=== PATIENT | male | born 1940 | race Caucasian/White ===

== ENCOUNTER → 2016-07-25 | Outpatient (CLI) | payer MEDICARE | LOC: KOH-I 16:23 | DX: M25.571 Pain in right ankle and joints of right foot (principal) | CPT/HCPCS: 73630 ==

== ENCOUNTER 2020-03-13 17:34 | Emergency (ER) | payer MEDICARE ==
[~2020-03-13 17:34] MED LIST: ABREVA2 GM TP; AREDS EYE VITAMIN PO; ASPIRIN EC81 MG PO; AUGMENTIN 250-250 MG PO; AUGMENTIN 500-1 EACH PO; CLEOCIN HCL300 MG PO; CLOPIDOGREL75 MG PO; D3-200050 MCG PO; DOXYCYCLINE HY100 MG PO; FERROCITE324 MG PO; FISH OIL 1,0001 EAC4 PO; FLOMAX0.4 MG PO; FLUTICASONE-SA1 EAC4 INH; FOLIC ACID 1 MG1 MG PO; GABAPENTIN300 MG PO; HUMALOG 10100 UNITS/ SC; HYDROXYZINE PO; KEFLEX CAP 500500 MG PO; LIPITOR40 MG PO; LOPRESSOR 25 MG25 MG PO; MECLIZINE HCL25 M1 PO; MELATONIN3 M3 PO; MIDODRINE HCL10 MG PO; NEPHRO-VITE RX1 EACH PO; NORCO 5-325 TA1 EACH PO; PERCOCET 5/325 T1 EA PO; PLAVIX 75 MG TA75 MG PO; RENVELA800 MG PO; ROCALTROL CA0.25 MCG PO; SILVADENE CREAM20 GM TOP; SODIUM BICARBO650 MG PO; TYLENOL325 MG PO; ULTRAM50 MG PO; VENTOLIN HFA 66.7 GM INH; VITAMIN B-121000 MCG PO; VITAMIN D250000 UNIT PO; VITAMIN D31000 UNIT PO; VITAMIN D31250 MCG PO; [UNRECOGNIZED DRUG - OTHER] PO
[2020-03-31] MEDS ORDERED: LIPO-FLAVONOID1 EACH PO (12:54)
[2020-03-31] MEDS ORDERED: VITAMIN D21250 MCG PO (12:58)
[2020-03-31] MEDS ORDERED: MIDODRINE HCL5 MG PO (12:59)
[2020-03-31] MEDS ORDERED: VENTOLIN HFA 66.7 GM INH (13:01)
[2020-03-31] MEDS ORDERED: TRIPHROCAPS SOFT1 MG PO (13:01)
[2020-03-31] MEDS ORDERED: VITAMIN D350 MC3 PO (13:02)
[2020-03-31] MEDS ORDERED: HYDROXYZINE HCL10 MG PO (13:03)
[2020-03-31] MEDS ORDERED: AMMONIUM LAC CREAM TOP (13:03)
[2020-06-25] MEDS ORDERED: IRON325 M1 PO (09:16)
[2020-06-25] MEDS ORDERED: MECLIZINE HCL25 MG PO (09:16)
[2020-06-25] MEDS ORDERED: CLINDAMYCIN HC300 MG PO (15:05)
[2020-09-03] MEDS ORDERED: MIDODRINE HCL5 MG PO (09:14)
== END 2020-03-13 19:20 | disposition home or self-care (01) ==
LOC: ER1 17:34
DX: L76.22 Postprocedural hemorrhage of skin and subcutaneous tissue following other procedure (principal); E11.22 Type 2 diabetes mellitus with diabetic chronic kidney disease; N18.6 End stage renal disease; E11.40 Type 2 diabetes mellitus with diabetic neuropathy, unspecified; Z99.2 Dependence on renal dialysis; Z85.46 Personal history of malignant neoplasm of prostate; Z86.73 Personal history of transient ischemic attack (TIA), and cerebral infarction without residual deficits; Z79.02 Long term (current) use of antithrombotics/antiplatelets; Z79.899 Other long term (current) drug therapy
CPT/HCPCS: 99283

== ENCOUNTER → 2020-03-31 | Outpatient (CLI) | payer MEDICARE ==
[~2020-03-31] MED LIST changes: +AMMONIUM LAC CREAM TOP; +CALCIUM ACETAT667 M2 PO; +CIPRO250 MG PO; +CLINDAMYCIN HC300 MG PO; +FLOMAX 0.4 MG0.4 MG PO; +GENTAMICIN SULF30 GM TP; +HYDROXYZINE HCL10 MG PO; +IRON325 M1 PO; +LIPO-FLAVONOID1 EACH PO; +MECLIZINE HCL25 MG PO; +MIDODRINE HCL2.5 MG PO; +MIDODRINE HCL5 MG PO; +PLAVIX75 MG PO; +PREDNISONE 10 M10 MG PO; +SODIUM BICARBO650 M1 PO; +TRAMADOL HCL50 MG PO; +TRIPHROCAPS SOFT1 MG PO; +VANCOMYCIN IV750 MG IV; +VIBRAMYCIN100 MG PO; +VITAMIN D21250 MCG PO; +VITAMIN D350 MC3 PO
[2020-03-31 12:53] LABS: HEMOGLOBIN 10.3 gm/dl (14.0-17.5); RED BLOOD COUNT 3.35 M/UL (4.20-5.50); WHITE BLOOD COUNT 7.8 K/UL (4.5-11.0)
== END ==
LOC: OPSV2 09:00
PROVIDERS: Surgery
DX: Z01.818 Encounter for other preprocedural examination (principal); R94.39 Abnormal result of other cardiovascular function study; E11.9 Type 2 diabetes mellitus without complications
CPT/HCPCS: 36415; 71046; 80053; 85025; 85610; 85730; 86850; 86900; 86901; 93005

== ENCOUNTER 2020-04-15 19:27 | Inpatient (IN) | payer MEDICARE ==
[~2020-04-15] VITALS: Ht 182.9 cm; Wt 81.6 kg
[~2020-04-15 19:27] MED LIST changes: -CALCIUM ACETAT667 M2 PO; -CIPRO250 MG PO; -CLINDAMYCIN HC300 MG PO; -FLOMAX 0.4 MG0.4 MG PO; -GENTAMICIN SULF30 GM TP; -IRON325 M1 PO; -MECLIZINE HCL25 MG PO; -MIDODRINE HCL2.5 MG PO; -PLAVIX75 MG PO; -PREDNISONE 10 M10 MG PO; -SODIUM BICARBO650 M1 PO; -TRAMADOL HCL50 MG PO; -VANCOMYCIN IV750 MG IV; -VIBRAMYCIN100 MG PO
[2020-04-15 20:15] LABS: HEMOGLOBIN 9.1 gm/dl (14.0-17.5); RED BLOOD COUNT 2.98 M/UL (4.20-5.50); WHITE BLOOD COUNT 8.4 K/UL (4.5-11.0)
[2020-04-16 05:59] LABS: HEMOGLOBIN 8.3 gm/dl (14.0-17.5); RED BLOOD COUNT 2.77 M/UL (4.20-5.50)
[2020-04-16 14:41] LABS: ACINETOBACTER BAUMANNII Not Detected (Negative); CANDIDA ALBICANS Not Detected (Negative); CANDIDA KRUSEI Not Detected (Negative); CANDIDA TROPICALIS Not Detected (Negative); ENTEROCOCCUS Not Detected (Negative); ESCHERICHIA COLI Not Detected (Negative); HAEMOPHILUS INFLUENZAE Not Detected (Negative); KLEBSIELLA OXYTOCA Not Detected (Negative); KLEBSIELLA PNEUMONIAE Not Detected (Negative); KPC-CARBAPENEM-RESISTANCE GENE Not Detected (Negative); PROTEUS Not Detected (Negative); PSEUDOMONAS AERUGINOSA Not Detected (Negative); SERRATIA MARCESANS Not Detected (Negative); STREP AGALACTIAE (GROUP B) Not Detected (Negative); STREP PYOGENES (GROUP A) Not Detected (Negative); STREPTOCOCCUS Not Detected (Negative); vanA/B (VANCOMYCIN RESIST GENE Not Detected (Negative)
[2020-04-16 16:16] LABS: mecA (METHICILLIN RESIST GENE DETECTED (Negative)
[2020-04-16 16:17] LABS: STAPHYLOCOCCUS DETECTED (Negative); STAPHYLOCOCCUS AUREUS DETECTED (Negative)
[2020-04-17 05:31] LABS: HEMOGLOBIN 8.4 gm/dl (14.0-17.5); RED BLOOD COUNT 2.75 M/UL (4.20-5.50)
[2020-04-17 05:32] LABS: WHITE BLOOD COUNT 4.7 K/UL (4.5-11.0)
[2020-04-18 09:57] LABS: HEMOGLOBIN 7.9 gm/dl (14.0-17.5); RED BLOOD COUNT 2.61 M/UL (4.20-5.50); WHITE BLOOD COUNT 3.7 K/UL (4.5-11.0)
[2020-04-19 05:25] LABS: HEMOGLOBIN 8.6 gm/dl (14.0-17.5); RED BLOOD COUNT 2.85 M/UL (4.20-5.50); WHITE BLOOD COUNT 4.2 K/UL (4.5-11.0)
[2020-04-20 12:14] LABS: HBSAG SCREEN Negative (Negative); HEP A AB, IGM Negative (Negative); HEP B CORE AB, IGM Negative (Negative); HEP C VIRUS AB <0.1 (0.0-0.9)
--- NOTE | 2020-04-20 15:09 | NUR ---
LAB CALLED WITH POTASSIUM LEVEL AT 3.0. CALLED MD, NO ANSWER. PATIENT HAS PRN POTASSIUM ORDERED. GIVEN AT 1510.
--- NOTE | 2020-04-22 06:22 | NUR ---
DISCOVERED AT APPROXIMATELY 0200 THAT PATIENT'S HOLMAN BECAME KINKED WHEN PATIENT TURNED OVER IN BED, CREATING PRESSURE THAT CAUSED THE HOLMAN TO LEAK. UNSURE OF PATIENT'S OUTPUT AT THAT TIME. PATIENT WAS CLEANED UP, MORE SALINE WAS ADDED TO HOLMAN BALOON, PATIENT HAD 150 OUT AFTER THIS
[2020-04-23 02:31] LABS: HEMOGLOBIN 7.5 gm/dl (14.0-17.5); RED BLOOD COUNT 2.46 M/UL (4.20-5.50)
--- NOTE | 2020-04-23 10:44 | NUR ---
PATIENT LEFT FOR SURGICAL PROCEDURE AT 0820 THIS AM PER SURGERY STAFF. REPORT CALLED AT 1042 FROM PACU, PATIENT TOLERATED PROCEDURE WELL WILL RECIEVE DIALYSIS THIS AFTERNOON PER [facility] NURSE,
--- NOTE | 2020-04-24 15:03 | NUR ---
REPORT GIVEN TO THOMPSON. PATIENT TRANSFERRED TO ROOM #4112.
[2020-04-26] MEDS ORDERED: PREDNISONE 10 M10 MG PO (11:01)
[2020-04-26] MEDS ORDERED: MIDODRINE HCL5 MG PO (11:01)
[2020-04-26] MEDS ORDERED: ULTRAM50 MG PO (11:16)
[2020-04-26] MEDS ORDERED: VANCOMYCIN IV750 MG IV (14:05)
[2020-06-25] MEDS ORDERED: MECLIZINE HCL25 MG PO (09:16)
[2020-06-25] MEDS ORDERED: IRON325 M1 PO (09:16)
[2020-06-25] MEDS ORDERED: CLINDAMYCIN HC300 MG PO (15:05)
[2020-09-03] MEDS ORDERED: MIDODRINE HCL5 MG PO (09:14)
== END 2020-04-26 19:36 | DRG 314 ==
LOC: ER1 19:27 → PROG CARE 04-16 03:38 → CDU 04-16 03:38 → 2 EAST 04-16 03:38 → CCU 04-17 01:03 → PROG CARE 04-19 11:53 → MED SURG 4 04-24 15:38
PROVIDERS: Emergency Medicine; Internal Medicine; Internal Medicine Nephrology; ADMIT Internal Medicine
PROC: 05PY33Z Removal of Infusion Device from Upper Vein, Percutaneous Approach (ICD-10-PCS; principal; 2020-04-19)
PROC: 5A1D70Z Performance of Urinary Filtration, Intermittent, Less than 6 Hours Per Day (ICD-10-PCS; 2020-04-20)
PROC: 0JH63XZ Insertion of Tunneled Vascular Access Device into Chest Subcutaneous Tissue and Fascia, Percutaneous Approach (ICD-10-PCS; 2020-04-23)
PROC: 02H633Z Insertion of Infusion Device into Right Atrium, Percutaneous Approach (ICD-10-PCS; 2020-04-23)
PROC: B548ZZA Ultrasonography of Superior Vena Cava, Guidance (ICD-10-PCS; 2020-04-23)
PROC: 05HN33Z Insertion of Infusion Device into Left Internal Jugular Vein, Percutaneous Approach (ICD-10-PCS; 2020-04-23)
PROC: 5A1D70Z Performance of Urinary Filtration, Intermittent, Less than 6 Hours Per Day (ICD-10-PCS; 2020-04-26)
PROC: 5A1D70Z Performance of Urinary Filtration, Intermittent, Less than 6 Hours Per Day (ICD-10-PCS; 2020-04-26)
DX: T82.7XXA Infection and inflammatory reaction due to other cardiac and vascular devices, implants and grafts, initial encounter (principal); A41.02 Sepsis due to Methicillin resistant Staphylococcus aureus; R65.21 Severe sepsis with septic shock; N18.6 End stage renal disease; G93.41 Metabolic encephalopathy; I13.11 Hypertensive heart and chronic kidney disease without heart failure, with stage 5 chronic kidney disease, or end stage renal disease; E27.40 Unspecified adrenocortical insufficiency; H91.90 Unspecified hearing loss, unspecified ear; G62.9 Polyneuropathy, unspecified; I95.9 Hypotension, unspecified; M54.9 Dorsalgia, unspecified; Z20.822 Contact with and (suspected) exposure to COVID-19; E11.22 Type 2 diabetes mellitus with diabetic chronic kidney disease; D63.1 Anemia in chronic kidney disease; I44.0 Atrioventricular block, first degree; Z99.2 Dependence on renal dialysis; D69.6 Thrombocytopenia, unspecified; Z79.82 Long term (current) use of aspirin; Z86.73 Personal history of transient ischemic attack (TIA), and cerebral infarction without residual deficits; Z79.01 Long term (current) use of anticoagulants; Z87.442 Personal history of urinary calculi; Z85.46 Personal history of malignant neoplasm of prostate; Z90.5 Acquired absence of kidney; Z90.49 Acquired absence of other specified parts of digestive tract; R50.9 Fever, unspecified; R00.0 Tachycardia, unspecified; E87.6 Hypokalemia
CPT/HCPCS: ECHO; 0240U; 36415; 51702; 71045; 72131; 77001; 80048; 80053; 80074; 80202; 81001; 82533; 82962; 83605; 83735; 84100; 84132; 85025; 85027; 87040; 87070; 87077; 87086; 87150; 87186; 87635; 90937; 93005; 93306; 96365; 96375; 97110; 97110-GP-CQ; 97116-GP-CQ; 97162; 97166; 97530; 97530-GP-CQ; 97535; 99285; C1750; C1752; C1769; J0696; J0834; J1642; J1644; J2001; J2405; J2543; J2704; J3370; J3486; J7030; J7040; J7070; J7120

== ENCOUNTER → 2020-05-12 | Outpatient (CLI) | payer MEDICARE ==
[~2020-05-12] MED LIST changes: +CALCIUM ACETAT667 M2 PO; +CIPRO250 MG PO; +CLINDAMYCIN HC300 MG PO; +FLOMAX 0.4 MG0.4 MG PO; +GENTAMICIN SULF30 GM TP; +IRON325 M1 PO; +MECLIZINE HCL25 MG PO; +MIDODRINE HCL2.5 MG PO; +PLAVIX75 MG PO; +PREDNISONE 10 M10 MG PO; +SODIUM BICARBO650 M1 PO; +TRAMADOL HCL50 MG PO; +VANCOMYCIN IV750 MG IV; +VIBRAMYCIN100 MG PO
[2020-05-12 11:51] LABS: HEMOGLOBIN 8.1 gm/dl (14.0-17.5); RED BLOOD COUNT 2.62 M/UL (4.20-5.50); WHITE BLOOD COUNT 3.9 K/UL (4.5-11.0)
== END ==
LOC: LAB 10:37
PROVIDERS: Physician Assistant Medical
DX: A41.02 Sepsis due to Methicillin resistant Staphylococcus aureus (principal); B95.62 Methicillin resistant Staphylococcus aureus infection as the cause of diseases classified elsewhere; A41.51 Sepsis due to Escherichia coli [E. coli]; D52.9 Folate deficiency anemia, unspecified; E11.22 Type 2 diabetes mellitus with diabetic chronic kidney disease
CPT/HCPCS: 36415; 82607; 82728; 82746; 83540; 83550; 85025; 85045; 86900; 86901

== ENCOUNTER 2020-05-24 11:35 | Emergency (ER) | payer MEDICARE ==
[~2020-05-24 11:35] MED LIST changes: -CALCIUM ACETAT667 M2 PO; -CIPRO250 MG PO; -CLINDAMYCIN HC300 MG PO; -FLOMAX 0.4 MG0.4 MG PO; -GENTAMICIN SULF30 GM TP; -IRON325 M1 PO; -MECLIZINE HCL25 MG PO; -MIDODRINE HCL2.5 MG PO; -PLAVIX75 MG PO; -SODIUM BICARBO650 M1 PO; -TRAMADOL HCL50 MG PO; -VIBRAMYCIN100 MG PO
[2020-05-24 12:15] LABS: RED BLOOD COUNT 3.22 M/UL (4.20-5.50)
[2020-05-24 12:37] LABS: BUN/CREATININE RATIO 6 (0-10)
[2020-06-25] MEDS ORDERED: IRON325 M1 PO (09:16)
[2020-06-25] MEDS ORDERED: MECLIZINE HCL25 MG PO (09:16)
[2020-06-25] MEDS ORDERED: CLINDAMYCIN HC300 MG PO (15:05)
[2020-09-03] MEDS ORDERED: MIDODRINE HCL5 MG PO (09:14)
== END 2020-05-24 18:09 | disposition home or self-care (01) ==
LOC: ER1 11:35
PROVIDERS: Family Medicine
DX: R06.00 Dyspnea, unspecified (principal); I95.9 Hypotension, unspecified; I48.91 Unspecified atrial fibrillation; I12.0 Hypertensive chronic kidney disease with stage 5 chronic kidney disease or end stage renal disease; E87.2 Acidosis; E11.22 Type 2 diabetes mellitus with diabetic chronic kidney disease; N18.6 End stage renal disease; Z99.2 Dependence on renal dialysis; Z86.73 Personal history of transient ischemic attack (TIA), and cerebral infarction without residual deficits; Z87.442 Personal history of urinary calculi; Z88.8 Allergy status to other drugs, medicaments and biological substances; Z20.822 Contact with and (suspected) exposure to COVID-19
CPT/HCPCS: 36600; 71045; 80053; 81001; 82550; 82553; 82803; 83605; 83690; 83735; 83874; 84439; 84443; 84484; 85025; 85610; 87040; 93005; 99285; U0003

== ENCOUNTER → 2020-05-26 | Outpatient (CLI) | payer MEDICARE ==
[~2020-05-26] MED LIST changes: +CALCIUM ACETAT667 M2 PO; +CIPRO250 MG PO; +CLINDAMYCIN HC300 MG PO; +FLOMAX 0.4 MG0.4 MG PO; +GENTAMICIN SULF30 GM TP; +IRON325 M1 PO; +MECLIZINE HCL25 MG PO; +MIDODRINE HCL2.5 MG PO; +PLAVIX75 MG PO; +SODIUM BICARBO650 M1 PO; +TRAMADOL HCL50 MG PO; +VIBRAMYCIN100 MG PO
[2020-05-26 13:24] LABS: HEMOGLOBIN 9.1 gm/dl (14.0-17.5); RED BLOOD COUNT 2.9 M/UL (4.20-5.50)
[2020-05-26 13:26] LABS: WHITE BLOOD COUNT 4.5 K/UL (4.5-11.0)
== END ==
LOC: OPSV2 12:00
PROVIDERS: Surgery
DX: Z01.818 Encounter for other preprocedural examination (principal)
CPT/HCPCS: 36415; 71046; 80053; 81001; 85025; 85610; 85730; 86850; 86900; 86901

== ENCOUNTER → 2020-05-27 | Day surgery (SDC) | payer MEDICARE | END | disposition home or self-care (01) | LOC: OR 06:17 | DX: E11.22 Type 2 diabetes mellitus with diabetic chronic kidney disease (principal); N18.6 End stage renal disease; D63.1 Anemia in chronic kidney disease; E11.40 Type 2 diabetes mellitus with diabetic neuropathy, unspecified; J45.909 Unspecified asthma, uncomplicated; M06.9 Rheumatoid arthritis, unspecified; I27.20 Pulmonary hypertension, unspecified; I48.91 Unspecified atrial fibrillation; Z86.73 Personal history of transient ischemic attack (TIA), and cerebral infarction without residual deficits; Z99.2 Dependence on renal dialysis; Z88.8 Allergy status to other drugs, medicaments and biological substances; Z79.82 Long term (current) use of aspirin; Z79.02 Long term (current) use of antithrombotics/antiplatelets; Z79.891 Long term (current) use of opiate analgesic; Z79.899 Other long term (current) drug therapy | CPT/HCPCS: 82962; J0690; J1580; J1644; J2001; J2704; J2720; J2795; J3010; J7030; J7040; J7050; J7120; Q9962; Q9967 ==

== ENCOUNTER → 2020-06-23 | Outpatient (CLI) | payer MEDICARE ==
[2020-06-23 13:19] LABS: HEMOGLOBIN 10.6 gm/dl (14.0-17.5); RED BLOOD COUNT 3.45 M/UL (4.20-5.50); WHITE BLOOD COUNT 5.5 K/UL (4.5-11.0)
== END ==
LOC: LAB 12:16
PROVIDERS: Internal Medicine Cardiovascular Disease
DX: I63.412 Cerebral infarction due to embolism of left middle cerebral artery (principal); R00.2 Palpitations; I49.3 Ventricular premature depolarization; Z20.822 Contact with and (suspected) exposure to COVID-19
CPT/HCPCS: 36415; 71046; 80048; 85025; U0003

== ENCOUNTER → 2020-06-25 | Outpatient (CLI) | payer MEDICARE | LOC: CATH 08:21 | DX: I69.398 Other sequelae of cerebral infarction (principal); R00.2 Palpitations; Z20.822 Contact with and (suspected) exposure to COVID-19; I49.3 Ventricular premature depolarization; E11.22 Type 2 diabetes mellitus with diabetic chronic kidney disease; N18.6 End stage renal disease; D63.1 Anemia in chronic kidney disease; E11.42 Type 2 diabetes mellitus with diabetic polyneuropathy; E11.51 Type 2 diabetes mellitus with diabetic peripheral angiopathy without gangrene; I65.23 Occlusion and stenosis of bilateral carotid arteries; M10.9 Gout, unspecified; M19.90 Unspecified osteoarthritis, unspecified site; N40.1 Benign prostatic hyperplasia with lower urinary tract symptoms; N13.8 Other obstructive and reflux uropathy; F41.9 Anxiety disorder, unspecified; Z85.46 Personal history of malignant neoplasm of prostate; Z95.818 Presence of other cardiac implants and grafts | CPT/HCPCS: 82962; 99152; C1764; J2250; J3370; J7050 ==

== ENCOUNTER → 2020-07-27 | Outpatient (CLI) | payer MEDICARE ==
[2020-07-29 11:15] LABS: HBSAG SCREEN Negative (Negative); HEPATITIS B SURF AB QUANT 26.2 mIU/mL (Immunity>9.9)
[2020-07-30 07:11] LABS: QUANTIFERON MITOGEN VALUE >10.00 IU/mL (.); QUANTIFERON-TB GOLD PLUS Negative (Negative)
== END ==
LOC: LAB 16:50
PROVIDERS: Internal Medicine Nephrology
DX: N18.6 End stage renal disease (principal); Z99.2 Dependence on renal dialysis
CPT/HCPCS: 86317; 86704; 87340

== ENCOUNTER → 2020-08-31 | Outpatient (CLI) | payer MEDICARE ==
[2020-08-31 12:18] LABS: HEMOGLOBIN 9.6 gm/dl (14.0-17.5); RED BLOOD COUNT 3.21 M/UL (4.20-5.50); WHITE BLOOD COUNT 5.7 K/UL (4.5-11.0)
[2020-09-01 05:20] LABS: HBSAG SCREEN Negative (Negative); HEP A AB, IGM Negative (Negative); HEP B CORE AB, IGM Negative (Negative); HEP C VIRUS AB <0.1 (0.0-0.9)
[2020-09-03 15:14] LABS: QUANTIFERON MITOGEN VALUE >10.00 IU/mL (.); QUANTIFERON NIL VALUE 0.03 IU/mL (.); QUANTIFERON TB1 AG VALUE 0.03 IU/mL (.); QUANTIFERON TB2 AG VALUE 0.02 IU/mL (.); QUANTIFERON-TB GOLD PLUS Negative (Negative)
== END ==
LOC: LAB 10:58
PROVIDERS: Internal Medicine Nephrology
DX: N18.6 End stage renal disease (principal); B18.0 Chronic viral hepatitis B with delta-agent; Z20.822 Contact with and (suspected) exposure to COVID-19
CPT/HCPCS: 36415; 80048; 80074; 85027; U0002

== ENCOUNTER 2020-09-03 09:58 | Inpatient (IN) | payer MEDICARE ==
[~2020-09-03] VITALS: Ht 182.9 cm; Wt 75.9 kg
[~2020-09-03 09:58] MED LIST changes: -CALCIUM ACETAT667 M2 PO; -CIPRO250 MG PO; -FLOMAX 0.4 MG0.4 MG PO; -GENTAMICIN SULF30 GM TP; -MIDODRINE HCL2.5 MG PO; -PLAVIX75 MG PO; -SODIUM BICARBO650 M1 PO; -TRAMADOL HCL50 MG PO; -VIBRAMYCIN100 MG PO
[2020-09-03 11:02] LABS: HEMOGLOBIN 9.6 gm/dl (14.0-17.5); RED BLOOD COUNT 3.22 M/UL (4.20-5.50)
[2020-09-03 11:40] LABS: BUN/CREATININE RATIO 11 (0-10)
[2020-09-03] MEDS ORDERED: PLAVIX75 MG PO (12:57)
[2020-09-03] MEDS ORDERED: LIPITOR40 MG PO (12:58)
[2020-09-03] MEDS ORDERED: FLOMAX 0.4 MG0.4 MG PO ×2 (12:59→16:29)
[2020-09-03] MEDS ORDERED: CALCIUM ACETAT667 M2 PO (13:00)
[2020-09-03] MEDS ORDERED: SODIUM BICARBO650 M1 PO (16:25)
[2020-09-03] MEDS ORDERED: CIPRO250 MG PO (16:27)
[2020-09-03] MEDS ORDERED: VIBRAMYCIN100 MG PO (16:27)
[2020-09-03] MEDS ORDERED: GENTAMICIN SULF30 GM TP (16:29)
[2020-09-03] MEDS ORDERED: HYDROXYZINE HCL10 MG PO (16:31)
[2020-09-03] MEDS ORDERED: TRAMADOL HCL50 MG PO (16:31)
[2020-09-04 07:16] LABS: HEMOGLOBIN 8.6 gm/dl (14.0-17.5)
[2020-09-04 07:17] LABS: RED BLOOD COUNT 2.87 M/UL (4.20-5.50); WHITE BLOOD COUNT 5.3 K/UL (4.5-11.0)
[2020-09-05 03:15] LABS: HEMOGLOBIN 9.3 gm/dl (14.0-17.5); RED BLOOD COUNT 3.1 M/UL (4.20-5.50); WHITE BLOOD COUNT 5.3 K/UL (4.5-11.0)
[2020-09-05] MEDS ORDERED: MIDODRINE HCL2.5 MG PO (09:48)
--- NOTE | 2020-09-05 18:27 | NUR ---
UPON DISCHARGE, PT BP WAS 101/46 IN THE LEFT ARM, AND 96/43 IN THE RIGHT ARM. PER DR. LEVIN GIVE MIDODRINE 10MG AND PT IS OKAY TO DC HOME.ADVISE PT TO RETURN TO ER IF BLOOD PRESSURE BECOMES LOW. PT WAS GIVEN THE 1600 DOSE OF MIDODRINE AT 1829.
--- NOTE | 2020-09-05 19:05 | NUR ---
PT RETURNED FROM DIALYSIS TO THE FLOOR AT 1649. PT VITALS WERE BP: 126/65, HR: 62, RR: 17, TEMP: 97.9. PT WAS RESTING IN THE BED. PT CONTINUES TO WORRY ABOUT WHY HE CANNOT GET AHOLD OF HIS . PT WAS TOLD THAT DUE TO HER KNEE REPLACEMENT THAT SHE WILL NOT BE AT THE HOSPITAL TODAY. WILL CONTINUE TO MONITOR BEFORE DISCHARGE.
[2020-09-07 05:19] LABS: HBSAG SCREEN Negative (Negative); HEP A AB, IGM Negative (Negative); HEP B CORE AB, IGM Negative (Negative); HEP C VIRUS AB <0.1 (0.0-0.9)
== END 2020-09-05 17:17 | disposition home or self-care (01) | DRG 683 ==
LOC: ER1 09:58 → CDU 15:27 → PROG CARE 09-04 17:09 → MED SURG 4 09-04 21:10
PROVIDERS: Emergency Medicine; Internal Medicine Nephrology; Student in an Organized Health Care Education/Training Program; ADMIT Internal Medicine
DX: N18.6 End stage renal disease (principal); T85.71XA Infection and inflammatory reaction due to peritoneal dialysis catheter, initial encounter; E27.40 Unspecified adrenocortical insufficiency; R06.02 Shortness of breath; E11.42 Type 2 diabetes mellitus with diabetic polyneuropathy; E11.22 Type 2 diabetes mellitus with diabetic chronic kidney disease; I95.9 Hypotension, unspecified; F03.90 Unspecified dementia, unspecified severity, without behavioral disturbance, psychotic disturbance, mood disturbance, and anxiety; F41.0 Panic disorder [episodic paroxysmal anxiety]; F41.9 Anxiety disorder, unspecified; D69.6 Thrombocytopenia, unspecified; Z79.899 Other long term (current) drug therapy; Z79.01 Long term (current) use of anticoagulants; Z79.82 Long term (current) use of aspirin; Z88.1 Allergy status to other antibiotic agents; Z85.46 Personal history of malignant neoplasm of prostate; Z86.73 Personal history of transient ischemic attack (TIA), and cerebral infarction without residual deficits; Z90.49 Acquired absence of other specified parts of digestive tract; Z90.5 Acquired absence of kidney; Z88.8 Allergy status to other drugs, medicaments and biological substances; Z86.14 Personal history of Methicillin resistant Staphylococcus aureus infection; Z99.2 Dependence on renal dialysis; Z91.15 Patient's noncompliance with renal dialysis
CPT/HCPCS: 0240U; 36415; 71045; 80053; 80074; 80202; 81001; 82550; 82553; 82803; 83605; 83690; 83735; 83874; 83880; 84100; 84484; 85025; 85652; 86140; 87040; 90937; 93005; 96374; 96375; 99285; J0692; J3370; J7030; J7070

== ENCOUNTER 2020-09-18 10:52 | Emergency (ER) | payer MEDICARE ==
[~2020-09-18 10:52] MED LIST changes: +CALCIUM ACETAT667 M2 PO; +CIPRO250 MG PO; +FLOMAX 0.4 MG0.4 MG PO; +GENTAMICIN SULF30 GM TP; +MIDODRINE HCL2.5 MG PO; +PLAVIX75 MG PO; +SODIUM BICARBO650 M1 PO; +TRAMADOL HCL50 MG PO; +VIBRAMYCIN100 MG PO
[2020-09-18 11:58] LABS: HEMOGLOBIN 9.2 gm/dl (14.0-17.5); RED BLOOD COUNT 3.01 M/UL (4.20-5.50); WHITE BLOOD COUNT 6.6 K/UL (4.5-11.0)
== END 2020-09-18 14:25 | disposition home or self-care (01) ==
LOC: ER1 10:52
PROVIDERS: Emergency Medicine
DX: E11.22 Type 2 diabetes mellitus with diabetic chronic kidney disease (principal); N18.6 End stage renal disease; D63.1 Anemia in chronic kidney disease; Z90.49 Acquired absence of other specified parts of digestive tract; Z90.89 Acquired absence of other organs; Z99.2 Dependence on renal dialysis
CPT/HCPCS: 82272; 85025; 99284; J7050

== ENCOUNTER → 2020-12-13 | Outpatient (CLI) | payer MEDICARE | LOC: KOH-I 12-10 09:45 | DX: R51.9 Headache, unspecified (principal) | CPT/HCPCS: 70551 ==

== ENCOUNTER → 2021-01-26 | Outpatient (CLI) | payer MEDICARE | LOC: KOH-I 13:40 | DX: M25.511 Pain in right shoulder (principal); M19.011 Primary osteoarthritis, right shoulder | CPT/HCPCS: 73030 ==

== ENCOUNTER 2021-01-27 12:58 | Emergency (ER) | payer MEDICARE ==
[2021-01-27 13:54] LABS: HEMOGLOBIN 13.9 gm/dl (14.0-17.5); RED BLOOD COUNT 4.61 M/UL (4.20-5.50); WHITE BLOOD COUNT 7.9 K/UL (4.5-11.0)
[2021-01-27 14:07] LABS: BUN/CREATININE RATIO 5 (0-10)
== END 2021-01-27 17:01 | disposition home or self-care (01) ==
LOC: ER1 12:58
PROVIDERS: Physician Assistant
DX: Z49.01 Encounter for fitting and adjustment of extracorporeal dialysis catheter (principal); Z20.822 Contact with and (suspected) exposure to COVID-19; E11.22 Type 2 diabetes mellitus with diabetic chronic kidney disease; N18.6 End stage renal disease
CPT/HCPCS: 71045; 80053; 82550; 82553; 83874; 83880; 84484; 85025; 93005; 99285; U0002

== ENCOUNTER 2021-09-29 07:17 | Emergency (ER) | payer MEDICARE ==
[2021-09-29 08:18] LABS: HEMOGLOBIN 8.4 gm/dl (14.0-17.5); RED BLOOD COUNT 2.74 M/UL (4.20-5.50)
== END 2021-09-29 09:20 | disposition home or self-care (01) ==
LOC: ER1 07:17
PROVIDERS: Physician Assistant
DX: M25.511 Pain in right shoulder (principal); M25.512 Pain in left shoulder; G89.29 Other chronic pain; I13.10 Hypertensive heart and chronic kidney disease without heart failure, with stage 1 through stage 4 chronic kidney disease, or unspecified chronic kidney disease; E11.22 Type 2 diabetes mellitus with diabetic chronic kidney disease; N18.9 Chronic kidney disease, unspecified; Z99.2 Dependence on renal dialysis; I48.91 Unspecified atrial fibrillation; Z88.8 Allergy status to other drugs, medicaments and biological substances; Z87.891 Personal history of nicotine dependence
CPT/HCPCS: 71045; 73030; 80053; 82550; 82553; 83605; 84484; 85025; 93005; 99284

== ENCOUNTER → 2021-10-07 17:08 | Emergency (ER) | payer MEDICARE ==
[2021-10-07 17:29] LABS: HEMOGLOBIN 7.6 gm/dl (14.0-17.5); RED BLOOD COUNT 2.41 M/UL (4.20-5.50); WHITE BLOOD COUNT 7.1 K/UL (4.5-11.0)
== END | disposition home or self-care (01) ==
LOC: ER1 17:08
PROVIDERS: Preventive Medicine Occupational Medicine
DX: S06.6X9A Traumatic subarachnoid hemorrhage with loss of consciousness of unspecified duration, initial encounter (principal); S01.01XA Laceration without foreign body of scalp, initial encounter; Z20.822 Contact with and (suspected) exposure to COVID-19; W19.XXXA Unspecified fall, initial encounter; Y92.009 Unspecified place in unspecified non-institutional (private) residence as the place of occurrence of the external cause
CPT/HCPCS: 0240U; 36600; 51702; 70450; 71045; 72125; 73502; 80053; 81001; 82550; 82553; 82803; 83690; 84484; 85025; 85610; 85652; 85730; 86140; 93005; 96360; 96361; 99285

== ENCOUNTER 2021-11-01 20:12 | Inpatient (IN) | payer MEDICARE ==
[~2021-11-01] VITALS: Ht 182.9 cm; Wt 65.3 kg
[2021-11-01 20:44] LABS: HEMOGLOBIN 9.9 gm/dl (14.0-17.5); RED BLOOD COUNT 3.13 M/UL (4.20-5.50); WHITE BLOOD COUNT 12.6 K/UL (4.5-11.0)
[2021-11-02 06:18] LABS: HEMOGLOBIN 9.4 gm/dl (14.0-17.5); RED BLOOD COUNT 2.94 M/UL (4.20-5.50)
[2021-11-02 06:26] LABS: WHITE BLOOD COUNT 7.2 K/UL (4.5-11.0)
[2021-11-02] MEDS ORDERED: DONEPEZIL HCL5 MG PO (17:20)
[2021-11-02] MEDS ORDERED: PRESERVISION A1 EACH PO (17:22)
[2021-11-02] MEDS ORDERED: RENA-VITE RX T1 EACH PO (17:23)
[2021-11-02] MEDS ORDERED: SENNA-S 8.6-501 EACH PO (17:24)
[2021-11-02] MEDS ORDERED: SYMMETREL 100100 MG PO (17:28)
[2021-11-02] MEDS ORDERED: MIDODRINE HCL5 MG PO (17:48)
[2021-11-02] MEDS ORDERED: RENVELA800 MG PO (17:49)
[2021-11-02] MEDS ORDERED: ACETAMINOPHEN500 MG PO (17:50)
[2021-11-02] MEDS ORDERED: LACTULOSE10 GM/15 M PO (17:52)
[2021-11-02] MEDS ORDERED: MELATONIN3 MG PO (17:53)
[2021-11-03 05:52] LABS: HEMOGLOBIN 8.3 gm/dl (14.0-17.5); WHITE BLOOD COUNT 5.5 K/UL (4.5-11.0)
[2021-11-03 05:53] LABS: RED BLOOD COUNT 2.64 M/UL (4.20-5.50)
[2021-11-04 05:09] LABS: HBSAG SCREEN Negative (Negative); HCV AB <0.1 (0.0-0.9); HEP A AB, IGM Negative (Negative); HEP B CORE AB, IGM Negative (Negative)
[2021-11-04 21:30] LABS: RED BLOOD COUNT 2.49 M/UL (4.20-5.50); WHITE BLOOD COUNT 4.7 K/UL (4.5-11.0)
--- NOTE | 2021-11-05 02:54 | NUR ---
Late entry for 11/04/2021 @ 20:40 - MD Norman places order for Heparin drip per DVT protocol. made aware of patient's previous platelet count of 69 and previous hematocrit count of 26.4. MD Norman instructed to continue with initiation of Heparin drip, and to not give an inital bolus or any boluses with dose adjustments.
[2021-11-05 04:20] LABS: HEMOGLOBIN 7.8 gm/dl (14.0-17.5); RED BLOOD COUNT 2.45 M/UL (4.20-5.50); WHITE BLOOD COUNT 4.4 K/UL (4.5-11.0)
--- NOTE | 2021-11-05 13:48 | NUR ---
PATIENT RETURNED FROM DIALYSIS. ASLEEP. AROUSES TO VERBAL STIMULI. NO FLUID REMOVED IN DIALYSIS ONLY FILTRATION. NO DISTRESS NOTED. WCTM.
--- NOTE | 2021-11-05 17:12 | NUR ---
1700 DOBHOFF PLACED TO RIGHT NARE. PATIENT TOLERATED WELL. PLACEMENT VERIFIED VIA AUSCULTATION. PENDING XRAY FOR VERIFIED PLACEMENT PRIOR TO USE. NO DISTRESS NOTED. WCTM.
[2021-11-06 14:51] LABS: HEMOGLOBIN 8.6 gm/dl (14.0-17.5); RED BLOOD COUNT 2.68 M/UL (4.20-5.50)
[2021-11-06 14:52] LABS: WHITE BLOOD COUNT 6.6 K/UL (4.5-11.0)
[2021-11-07 03:31] LABS: HEMOGLOBIN 9.1 gm/dl (14.0-17.5); RED BLOOD COUNT 2.83 M/UL (4.20-5.50)
[2021-11-07 03:33] LABS: WHITE BLOOD COUNT 8.6 K/UL (4.5-11.0)
--- NOTE | 2021-11-07 19:17 | NUR ---
called mri results to dr hendricks and dr piedra. recieved no new orders. will continue to monitor.
[2021-11-08 06:50] LABS: RED BLOOD COUNT 2.78 M/UL (4.20-5.50); WHITE BLOOD COUNT 10.6 K/UL (4.5-11.0)
[2021-11-09 07:27] LABS: HEMOGLOBIN 8.7 gm/dl (14.0-17.5); RED BLOOD COUNT 2.72 M/UL (4.20-5.50)
[2021-11-10 07:40] LABS: HEMOGLOBIN 8.1 gm/dl (14.0-17.5); RED BLOOD COUNT 2.67 M/UL (4.20-5.50); WHITE BLOOD COUNT 7.7 K/UL (4.5-11.0)
[2021-11-11 04:01] LABS: HEMOGLOBIN 7.6 gm/dl (14.0-17.5); WHITE BLOOD COUNT 6.7 K/UL (4.5-11.0)
[2021-11-11 04:02] LABS: RED BLOOD COUNT 2.36 M/UL (4.20-5.50)
--- NOTE | 2021-11-11 12:41 | NUR ---
0900: PATIENT BROUGHT IN COPY OF LIVING WILL AND ASKED RN TO DISCUSS/EXPLAIN THE CONTENT WITH HER. ESCORTED TO ANOTHER ROOM FOR PRIVACY. RN DISCUSSED EACH ITEM, LIFE PROLONGING TREATMENT, ARTIFICAL NUTRITION AND ORGAN DONATION. AGREES THAT SHE NOW WISHES TO ABIDE BY HER HUSBANDS WISHES SET FORTH IN HIS LIVING WILL. PATIENT IS ALREADY A DNR, TO DISCUSS THE TUBE FEEDING WITH DR PRUITT ON HIS ARRIVAL. RN ALSO NOTIFED DR PRUITT OF DISCUSSION HELD WITH PATIENTS . COPY OF LIVING WILL PLACED ON PATIENTS CHART.
[2021-11-12 06:22] LABS: HEMOGLOBIN 8.3 gm/dl (14.0-17.5); WHITE BLOOD COUNT 7.9 K/UL (4.5-11.0)
[2021-11-12 06:24] LABS: RED BLOOD COUNT 2.65 M/UL (4.20-5.50)
[2021-11-12 07:12] LABS: HBSAG SCREEN Negative (Negative)
[2021-11-13 03:59] LABS: HEMOGLOBIN 7.9 gm/dl (14.0-17.5); RED BLOOD COUNT 2.49 M/UL (4.20-5.50); WHITE BLOOD COUNT 8.9 K/UL (4.5-11.0)
--- NOTE | 2021-11-13 11:28 | NUR ---
PT TURNED TO HIS LEFT SIDE AND PROPPED FEET UP ON PILLOWS AND UNDERS LEGS.
--- NOTE | 2021-11-14 08:10 | NUR ---
PATIENT RUNNING A FEVER OF 103.1. GIVEN TYLENOL AND FEVER DECREASED TO 102.4. DR. PRUITT NOTIFIED OF FEVER. NEW ORDERS NOTED. RBVO. WILL CONTINUE TO MONITOR PATIENT.
[2021-11-15 06:27] LABS: HEMOGLOBIN 7.9 gm/dl (14.0-17.5); RED BLOOD COUNT 2.47 M/UL (4.20-5.50); WHITE BLOOD COUNT 10.1 K/UL (4.5-11.0)
[2021-11-15] MEDS ORDERED: ACETAMINOPHEN-1 EAC1 PO (10:52)
[2021-11-15] MEDS ORDERED: HYDROMORPHO IVP (10:52)
[2021-11-15] MEDS ORDERED: FLOMAX 0.4 MG0.4 MG PO (10:52)
--- NOTE | 2021-11-15 14:27 | NUR ---
CALLED REPORT TO PCU NURSE. PT IS IN NO DISTRESS AND ON AIRVO AT 50L.
== END 2021-11-15 15:15 | DRG 64 ==
LOC: ER1 20:12 → CDU 22:53 → MED SURG 4 22:53
PROVIDERS: Internal Medicine; Internal Medicine Nephrology; Nurse Practitioner; ADMIT Family Medicine
PROC: B24BZZZ Ultrasonography of Heart with Aorta (ICD-10-PCS; 2021-11-02)
PROC: 5A1D70Z Performance of Urinary Filtration, Intermittent, Less than 6 Hours Per Day (ICD-10-PCS; 2021-11-03)
PROC: 3E03329 Introduction of Other Anti-infective into Peripheral Vein, Percutaneous Approach (ICD-10-PCS; 2021-11-04)
PROC: 0DH63UZ Insertion of Feeding Device into Stomach, Percutaneous Approach (ICD-10-PCS; principal; 2021-11-05)
PROC: 3E0336Z Introduction of Nutritional Substance into Peripheral Vein, Percutaneous Approach (ICD-10-PCS; 2021-11-05)
PROC: 5A1D70Z Performance of Urinary Filtration, Intermittent, Less than 6 Hours Per Day (ICD-10-PCS; 2021-11-05)
PROC: 5A1D70Z Performance of Urinary Filtration, Intermittent, Less than 6 Hours Per Day (ICD-10-PCS; 2021-11-08)
PROC: 5A1D70Z Performance of Urinary Filtration, Intermittent, Less than 6 Hours Per Day (ICD-10-PCS; 2021-11-10)
PROC: 5A1D70Z Performance of Urinary Filtration, Intermittent, Less than 6 Hours Per Day (ICD-10-PCS; 2021-11-12)
DX: I63.9 Cerebral infarction, unspecified (principal); A41.9 Sepsis, unspecified organism; G92.8 Other toxic encephalopathy; E43 Unspecified severe protein-calorie malnutrition; I21.A1 Myocardial infarction type 2; N18.6 End stage renal disease; I69.054 Hemiplegia and hemiparesis following nontraumatic subarachnoid hemorrhage affecting left non-dominant side; C18.7 Malignant neoplasm of sigmoid colon; C78.7 Secondary malignant neoplasm of liver and intrahepatic bile duct; F11.20 Opioid dependence, uncomplicated; I13.2 Hypertensive heart and chronic kidney disease with heart failure and with stage 5 chronic kidney disease, or end stage renal disease; Z68.1 Body mass index [BMI] 19.9 or less, adult; I82.C12 Acute embolism and thrombosis of left internal jugular vein; L89.326 Pressure-induced deep tissue damage of left buttock; Z66 Do not resuscitate; E78.5 Hyperlipidemia, unspecified; G30.9 Alzheimer's disease, unspecified; F02.80 Dementia in other diseases classified elsewhere, unspecified severity, without behavioral disturbance, psychotic disturbance, mood disturbance, and anxiety; H91.93 Unspecified hearing loss, bilateral; D69.6 Thrombocytopenia, unspecified; M19.90 Unspecified osteoarthritis, unspecified site; R53.81 Other malaise; M81.0 Age-related osteoporosis without current pathological fracture; E87.6 Hypokalemia; R13.12 Dysphagia, oropharyngeal phase; M79.81 Nontraumatic hematoma of soft tissue; L89.322 Pressure ulcer of left buttock, stage 2; D63.1 Anemia in chronic kidney disease; I45.81 Long QT syndrome; E11.649 Type 2 diabetes mellitus with hypoglycemia without coma; N40.0 Benign prostatic hyperplasia without lower urinary tract symptoms; K62.89 Other specified diseases of anus and rectum; R62.7 Adult failure to thrive; Z99.2 Dependence on renal dialysis; Z85.46 Personal history of malignant neoplasm of prostate; Z98.84 Bariatric surgery status; Z81.1 Family history of alcohol abuse and dependence; Z82.0 Family history of epilepsy and other diseases of the nervous system; I95.89 Other hypotension
CPT/HCPCS: ECHO; 36415; 36600; 70450; 70551; 71045; 74181; 80048; 80053; 80061; 80074; 80202; 81001; 82140; 82525; 82550; 82553; 82607; 82746; 82803; 82962; 83036; 83605; 83735; 83880; 84100; 84132; 84443; 84484; 84630; 85025; 85027; 85610; 85730; 86140; 87040; 87086; 87340; 92526; 92610; 93005; 93306; 93971; 94760; 97110; 97110-GP-CQ; 97163; 97166; 97530; 97530-GP-CQ; 99285; A6212; J1335; J1644; J2185; J3370; J3411; J3480; J7040; J7070; Q9967; U0002